=== PATIENT | female | born 1975 | race Caucasian/White ===

== ENCOUNTER 2018-05-23 19:26 | Emergency (ER) | payer MEDICAID, OTHER ==
[~2018-05-23] VITALS: Ht 160 cm; Wt 60.0 kg
[2018-05-23] MEDS ORDERED: SOD CHLORIDE 0.9% 1,000 ML IV STA (19:37)
[2018-05-23] MEDS ORDERED: morphine 2 MG INJ IV STA (19:37)
[2018-05-23 19:41] VITALS: Ht 160 cm; Wt 60.0 kg
[2018-05-23] MEDS ORDERED: ONDANSETRON 4 MG INJ IV ONE (20:00)
[2018-05-23] MEDS ORDERED: LORAZEPAM 2 MG INJ IV ONE (20:00)
[2018-05-23] MEDS ORDERED: SOD CHLORIDE 0.9% 100 ML ONE (20:02)
[2018-05-23] MEDS ORDERED: IOHEXOL 300MG/ML 150 ML BTL ONE (20:02)
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
[2018-05-23] MEDS ORDERED: IBUP800T48 PO (21:19)
[2018-05-23] MEDS ORDERED: DIPHTH/TET/ACEL PERTUSS (ADULT) 0.5 ML VIAL IM* ONE (21:30)
[2018-05-23 21:40] VITALS: BP 122/84; PULSE 74; RESP 16
== END 2018-05-23 22:10 | disposition home or self-care (01) ==
LOC: E/R 19:26
DX: S20.219A Contusion of unspecified front wall of thorax, initial encounter (principal); S80.11XA Contusion of right lower leg, initial encounter; S90.02XA Contusion of left ankle, initial encounter; R07.9 Chest pain, unspecified; V49.40XA Driver injured in collision with unspecified motor vehicles in traffic accident, initial encounter
CPT/HCPCS: 71260; 73590; 73610; 74177; 80048; 84703; 85025; 85610; 85730; 90471; 90715; 93005; 96374; 96375; J2060; J2270; J2405; J7030; Q9967; Z7502; Z7610